=== PATIENT | female | born 1945 | race Caucasian/White ===

== ENCOUNTER 2018-04-19 08:40 | Day surgery (SDC) | payer MEDICARE, OTHER ==
[2018-04-16 12:42] LABS: HEMATOCRIT 36.4 % (36.0-48.0); HEMOGLOBIN 12.2 g/dL (12-16); MCH 32.4 pg (26.0-34.0); MCHC 33.5 g/dL (31.0-37.0); MCV 96.6 fL (80.0-100.0); MEAN PLATELET VOLUME 9.5 fL (7.4-10.4); RBC 3.77 10x6/uL (4.00-5.40); RDW 12.8 % (11.5-14.5); WBC 5.4 10x3/uL (4.8-10.8)
[2018-04-16 12:46] LABS: ANION GAP 6.7 mmol/L (8-16); CALCIUM 9.3 mg/dL (8.5-10.1); CREATININE - SERUM 0.8 mg/dL (0.6-1.3); POTASSIUM - SERUM 3.7 mmol/L (3.5-5.1)
[~2018-04-19] VITALS: Ht 152.4 cm; Wt 65.8 kg
--- NOTE | ~2018-04-19 | OP ---
PATIENT NAME: JIM SOFIA MEDICAL RECORD: [id number] :41 LOCATION:D.OPS ADMISSION DATE: SURGEON: JEROME GRIFFITH MD DATE OF OPERATION: 04/19/2018 PREOPERATIVE DIAGNOSES: 1. Left hand trigger thumb. 2. Left hand ring finger trigger finger. POSTOPERATIVE DIAGNOSES: 1. Left hand trigger thumb. 2. Left hand ring finger trigger finger. PROCEDURES: 1. A1 pradeep release of the left hand trigger thumb. 3. A1 prdaeep release of the left hand ring finger. SURGEON: Jerome Griffith MD ANESTHESIA: General. INTRAOPERATIVE COMPLICATIONS: None. SUMMARY OF PATHOLOGIC FINDINGS: While the patient had attritional changes of the flexor tendons at the A1 pradeep. There was no evidence of full thickness tearing. OPERATIVE SUMMARY IN DETAIL: After obtaining the appropriate preoperative orthopedic surgery consents as well as anesthetic consultation, evaluation and clearance, the patient was brought to the operating room and placed on the operating table in supine position. After adequate TIVA anesthesia was administered, tourniquet was placed about the proximal aspect of the left upper extremity. Left upper extremity was prepped and draped in routine sterile fashion. The arm was elevated and exsanguinated, tourniquet inflated to 250 mmHg. An incision was made over the A1 pradeep of the thumb. Dissection was carefully taken down to the A1 pradeep itself while retracting the digital nerves. A1 pradeep was directly visualized and incised in its entirety. The tendon was inspected and findings were as noted above. Having completed this, incision was made at the base of the ring finger over the A1 pradeep. Again, the dissection was carried down to the A1 pradeep, which was directly visualized while it was incised in its entirety. Again, the tendons had some excoriation attritional changes, but no full thickness tearing was noted. Having completed this, the wound was irrigated and closed with 4-0 Prolene in routine interrupted fashion. The areas were locally infiltrated with 0.25% Marcaine and lidocaine mixed. Sterile dressings were applied. Tourniquet was deflated. The patient was awakened and taken back to outpatient in stable condition. All final needle and sponge counts were correct. TRANSINT:[id number] Voice Confirmation ID: [id number] DOCUMENT ID: [id number] OPERATIVE REPORT [id number] JIM SOFIA MD, JEROME SINGLETARY at 0914 CC: [id number] DICTATION DATE: 04/21/18 0807 STORES ASSISTANT: 04/21/18 0910 DEP SDC 04/19/18 [id number] [place] [id number]
[~2018-04-19 08:40] MED LIST: BENTYL 20 MG TA20 MG PO; BYSTOLIC2.5 MG PO; CALCIUM 250+D T1 TAB PO; HCTZ25 MG PO; POTASSIUM99 M1 PO; VITAMIN B650 MG PO
[2018-04-19 10:40] VITALS: BP 142/78; Ht 152.4 cm; Wt 65.8 kg
[2018-04-19] MEDS ORDERED: HYDROCODONE-APA1 TAB PO (12:29)
== END 2018-04-19 13:29 | disposition home or self-care (01) ==
LOC: D.OPS 08:40 → D.PAN 11:00 → D.OPS 11:00
PROVIDERS: Anesthesiology
DX: M65.312 Trigger thumb, left thumb (principal); M65.342 Trigger finger, left ring finger

== ENCOUNTER → 2018-05-21 08:37 | Outpatient (CLI) | payer MEDICARE, OTHER ==
[2018-04-19 10:40] VITALS: BMI 27.3
[~2018-05-21 08:37] MED LIST changes: +HYDROCODONE-APA1 TAB PO
== END | disposition home or self-care (01) ==
LOC: D.CT 08:30
DX: R05 Cough (principal)

== ENCOUNTER → 2019-01-25 07:07 | Outpatient (CLI) | payer MEDICARE, OTHER ==
[2018-04-19 10:40] VITALS: BMI 27.3
== END | disposition home or self-care (01) ==
LOC: D.MRI 07:07
PROVIDERS: ATTEND Orthopaedic Surgery
DX: M54.12 Radiculopathy, cervical region (principal)